=== PATIENT | female | born 2000 | race Caucasian/White ===

== ENCOUNTER 2020-12-04 10:35 | Emergency (ER) | payer OTHER, SELFPAY ==
[2020-12-04 11:07] VITALS: BP 128/71; PULSE 85; RESP 16; TEMP 37; O2SAT 99; BMI 28.8
--- NOTE | 2020-12-04 12:59 | PC.NURSE ---
PT LEFT BEFORE EVALUATION. WAS SEEN BY CUSTOMER MARKETING MANAGER, PT DID NOT NOTIFY STAFF SHE WAS LEAVING.
--- NOTE | 2020-12-04 12:59 | ED.GENADULT ---
HPI - General Adult General Chief complaint: Skin/Abscess/Foreign Body Stated complaint: Mouth abscess Time Seen by Provider: 12/04/20 12:59 Source: patient History of Present Illness HPI narrative: Patient left before full evaluation she was next to be seen once and went to the room she was gone I did speak with the patient briefly. Related Data Allergies Allergy/AdvReac Type Severity Reaction Status Date / Time No Known Allergies Allergy Verified 12/04/20 11:12 PMFSH Social History Social History Advance Directives: No Physical Exam Vital Signs: Vital Signs: Last Vital Signs Temp 98.6 F 12/04/20 11:07 Pulse 85 12/04/20 11:07 Resp 16 12/04/20 11:07 BP 128/71 12/04/20 11:07 Pulse Ox 99 12/04/20 11:07 Body Mass Index 28.8 Discharge Plan Discharge Clinical Impression: Acute facial pain Patient Disposition: Elopement Discharge Date/Time: 12/04/20 13:00
== END 2020-12-04 13:00 | disposition left against medical advice (07) ==
PROVIDERS: Emergency Provider Emergency Medicine Emergency Medical Services
DX: K12.2 Cellulitis and abscess of mouth (principal)
CPT/HCPCS: 99281; 99282